=== PATIENT | male | born 1980 | race African-American/Black ===

== ENCOUNTER 2020-01-01 14:10 | Emergency (ER) | payer OTHER, SELFPAY ==
[2020-01-01 14:12] VITALS: BP 142/73; PULSE 70; RESP 20; TEMP 37.3; O2SAT 100; BMI 30.8
--- NOTE | 2020-01-01 14:20 | PC.NURSE ---
Pt self positioning in bed for increased comfort. c/o low back pain w/ intermittent pain down left leg and intermittent numbness in left toes. Moving all extremities equally well. Denies bowel / bladder issues. Has not had back injury in the past.
--- NOTE | 2020-01-01 15:01 | ED_ITS ---
HPI - Back Pain/Injury <Ella Lacy PA-C - Last Filed: 01/01/20 23:47> General Chief Complaint: Back Pain/Injury Stated Complaint: Left Leg Pain Time Seen by Provider: 01/01/20 14:32 Source: patient and EMS Limitations: no limitations History of Present Illness HPI Narrative: This is a previously healthy 39-year-old gentleman who is in the [place] [facility] who reports to the ED with complaints of back pain that is radiating down his left thigh that began approximately week and half ago. He says that about a week and half ago he was working to get his puppy in to a crate and he was pushing while he was crouching down in kneeling and he felt something ?go out in his back and was unable to stand up after this happened for a period of time, he says that he had to lay down on his back it gradually was able to ?stand up like an old man does for the next few days he was limping because of his back pain on the left side and radiation down the back of his leg. He describes the pain as intermittent, he says he really only notices it when he walks around for a while and then it becomes pretty severe although at times after walking it is so bad that it is like a 10/10 and he thinks he may be having spasms. When he is lying down or at rest in general and has not been moving recently he does not have any active pain. 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 and as is possible for him to have MRI imaging. He also notes that he has some chronic numbness in his feet on the outside of his feet and has been told previously that this may be due to his shoes being too tight. This is an isolated complaint he has no other concerns today and has been in his normal state of health otherwise, he denies fever, chills, N/V/D,saddle paresthesia, loss of bowel or bladder function, dysuria, abdominal pain, flank pain, testicular pain, numbness or tingling of his lower extremities except as above, or any other symptoms. Complaint: back pain and back injury Onset (ago): day(s) (11) Duration: intermittent Similar Symptoms Previously: No Location: lumbar spine and left lower back Severity: mild (Currently only a 1 was a 10 when he came in after he had been walking for a while) Quality: aching Radiation: buttocks and left leg (Back of left thigh into back in the calf) Severity scale (1-10): 1 Relieving factors: other (Rest) Exacerbating factors: walking Context: while lifting and bending (Pushing) Associated symptoms: denies other symptoms Treatments prior to arrival: NSAIDS and acetaminophen Related Data Previous Rx's Medication Instructions Recorded tizanidine 6 mg PO Q8H PRN #14 cap MDD 18mg 01/01/20 Allergies Allergy/AdvReac Type Severity Reaction Status Date / Time No Known Drug Allergies Allergy Verified 01/01/20 14:16 Review of Systems <Ella Lacy PA-C - Last Filed: 01/01/20 23:47> Review of Systems Narrative: GENERAL: Denies chills, fatigue, malaise, fever, sweats. HEENT: Denies sinus pain, ear pain, sore throat, difficulty swallowing, dizziness. RESPIRATORY: Denies dyspnea, cough, wheezing, hemoptysis, sputum. CARDIOVASCULAR: Denies chest pain, palpitations, orthopnea, edema, GASTROINTESTINAL: Denies nausea, vomiting, abdominal pain, diarrhea, constipation, melena. : Denies dysuria, frequency, incontinence, hematuria, urinary retention. MUSCULOSKELETAL: Positive for low back pain that is left-sided and radiating down the back of his left thigh to his knee and calf, denies weakness, joint pain, or bony pain SKIN: Denies rash, skin lesions, or other NEUROLOGIC: Denies weakness, headache, numbness, change in speech, confusion, seizures, incoordination, does endorse chronic numb/tingly sensation on his feet mostly on the outside of his feet and more on the left that has been present for over a year. PSYCHIATRIC: No concerning psychosocial issues. 12 point review of systems is negative except for those stated above Patient History <Ella Lacy PA-C - Last Filed: 01/01/20 23:47> Social History Smoking Status: Former smoker Smoking Status: Former smoker alcohol intake frequency: 0-2 drinks per day Substance Use Type: does not use Exam <Ella Lacy PA-C - Last Filed: 01/01/20 23:47> Narrative Exam Narrative: GENERAL: 39 year old patient appears stated age. Well-nourished, well-developed patient, in mild distress. HEAD: Atraumatic. Normocephalic. EYES: Pupils equal round and reactive. Extraocular motions intact. No scleral icterus. No injection or drainage. ENT: Nose without bleeding, purulent drainage. Throat without erythema, tonsillar hypertrophy or exudate. Airway patent. NECK: Trachea midline. Non tender CARDIOVASCULAR: Regular rate and rhythm without murmurs, gallops, or rubs. RESPIRATORY: Clear to auscultation. Breath sounds equal bilaterally. No wheezes, rales, or rhonchi. GASTROINTESTINAL: Abdomen soft, non-tender, nondistended. EXTREMITIES: Negative straight leg raise. He has normal active Flexion extens ion abduction adduction at the hip with mild pain produced with flexion of the left hip. Strength is intact and equal bilaterally lower extremities. Distal pulses are intact. Sensation is intact, slight reduced sensation on the lateral left foot. No edema or joint tenderness. BACK: Nontender without deformity or crepitance. No flank tenderness. NEURO: AOx3. SKIN: No rash or erythema of visible areas Initial Vital Signs Initial Vital Signs: Vital Signs Temperature 99.1 F 01/01/20 14:12 Pulse Rate 70 01/01/20 14:12 Respiratory Rate 01/01/20 14:12 Blood Pressure 142/73 H 01/01/20 14:12 Pulse Oximetry 100 01/01/20 14:12 <Addis Corrigan DO - Last Filed: 01/06/20 07:32> Initial Vital Signs Initial Vital Signs: Vital Signs Temperature 99.1 F 01/01/20 14:12 Pulse Rate 70 01/01/20 14:12 Respiratory Rate 01/01/20 14:12 Blood Pressure 142/73 H 01/01/20 14:12 Pulse Oximetry 100 01/01/20 14:12 Scores <HANS Lainez Last Filed: 01/01/20 23:47> GCS [place] coma scale eye opening: Spontaneous [place] coma scale verbal response: Orientated [place] coma scale motor response: Obey commands [place] coma scale total score: 15 Course <Ella Lacy PA-C - Last Filed: 01/01/20 23:47> Orders Ordered: ED Orders 01/01/20 15:40 XR lumbar spine 2-3V Stat Vital Signs Vital signs: Vital Signs - 8 hr 01/01/20 17:08 Pulse Rate 70 Respiratory Rate 15 Blood Pressure 142/86 H Pulse Oximetry 100 <Addis Corrigan DO - Last Filed: 01/06/20 07:32> Orders Ordered: ED Orders 01/01/20 15:40 XR lumbar spine 2-3V Stat Vital Signs Vital signs: Vital Signs - 8 hr 01/01/20 17:08 Pulse Rate 70 Respiratory Rate 15 Blood Pressure 142/86 H Pulse Oximetry 100 MDM - Back Pain/Injury <Ella Lacy PA-C - Last Filed: 01/01/20 23:47> Differential Diagnosis Differential diagnosis: Likely lumbar radiculopathy, sciatica, strain of lumbar region, pyelonephritis, discitis and other (Nerve compression) Medical Records Attestation: I reviewed the patient's medical records. Imaging Data XR lumbar: Attestation: I personally reviewed and interpreted this imaging study as follows: Radiologist's Impression: [place] [address] XRay Report Signed Patient: Leni Cruz#: [id number] : 1980Acct:[id number] Age/Sex: 39 / MDate of Service: 01/01/20 Loc: ED Accession Number: [id number] Procedure: XR lumbar spine 2-3V Ordering Provider: Ella Lacy P.A-C PROCEDURE: XR LUMBAR SPINE 2-3V INDICATIONS: acute low back pain TECHNIQUE: 3 views of the lumbar spine were acquired. COMPARISON: None. FINDINGS: Bones: 5 [id number] vertebrae are present. There is normal bony alignment. No vertebral body compression fractures. No suspicious bony lesions. Soft tissues: Overlying bowel gas pattern is normal. No suspicious soft tissue calcifications. IMPRESSION: Normal for age, source of current acute low back pain symptoms is not seen. Dictated by: Quan Wong M.D. on 01/01/2020 at 16:03 Approved by: Quan Wong M.D. on 01/01/2020 at 16:04 MDM Narrative Medical decision making narrative: This is a healthy 39-year-old in the who presents with complaints of lumbar and left-sided low back pain radiating down the back of his thigh for the past approximately week and a half since he sustained an injury while squatting and pushing forward. Differential diagnoses considered include muscle strain, sprain, sciatica radiculopathy, nerve compression, bulging disc, herniated disc, pyelonephritis I have low suspicion that this is related to urinary or abdominal process, his history and symptoms are consistent with a muscle strain, sprain, possible nerve compression as he has pain radiating down the back of his leg consistent with sciatic nerve compression. X-ray did not show any evidence of an acute abnormality. He has no red flag symptoms. He is encouraged to follow-up with his PCP, do light stretching, consider physical therapy, ice and heat, talk to his PCP about possible more advanced imaging or referral to specialist care if his symptoms are not improving in the next few weeks. He is provided with a work note and muscle relaxant as I believe he has been experiencing some muscle spasms with this. He is advised to alternate Tylenol and ibuprofen for pain as needed. Emergency return precautions are provided, all questions are answered. Discharge Plan Departure Patient Disposition: Home Clinical Impression: Low back pain Qualifiers: Chronicity: acute Back pain laterality: left Sciatica presence: with sciatica Sciatica laterality: sciatica of left side Qualified Code(s): M54.42 - Lumbago with sciatica, left side Discharge Date/Time: 01/01/20 17:42 Instructions: DI for Back Pain With Sciatica, DI for Back Spasm Activity Restrictions/Additional Instructions: Thank you for allowing us to be part of her care in the emergency department today. There is no evidence of an emergent or life threatening illness at this time, but follow up with your doctor in 1-2 days is recommended nonetheless to continue to rule out serious underlying causes of your symptoms. Please call the office for an appointment. Please return to the Emergency Department for any worsening or persistent symptoms. Please take medications as directed. I stro ngly recommend that you follow-up with your PCP and talk to them about pursuing additional imaging if your symptoms do not resolve, if you are suffering from muscle sprain or strain this can take 3-6 weeks to resolve however given the symptoms you have in your thigh it is likely that you may have some nerve compression, which can take more time or may require other interventions or possibly other imaging in order to diagnose. Given the length of time he have had the symptoms in your foot it is very unlikely that this is related to the acute back injury that he suffered, I do recommend you talk to your primary care about this again, you may have some mild neuropathy and you may need to consider some orthopedic shoe inserts and or different shoes. I am prescribing a muscle relaxer which she can use if you are having muscle spasms, however it is important not to drive or operate heavy equipment. You can also alternate Tylenol and ibuprofen for pain. Prescriptions: New tizanidine 6 mg capsule 6 mg PO Q8H MDD 18mg PRN (Reason: muscle spasticity) Qty: 14 RF: 0 Stand Alone Forms: Work Release Note <Addis Corrigan, - Last Filed: 01/06/20 07:32> Cosign ED Attending Madysonature Attestation: I was immediately available in the department for consultation. Documentation has been reviewed. I agree with assessment and plan.
--- NOTE | 2020-01-01 15:40 | DI.RAD.S_ITS ---
PROCEDURE: XR LUMBAR SPINE 2-3V INDICATIONS: acute low back pain TECHNIQUE: 3 views of the lumbar spine were acquired. COMPARISON: None. FINDINGS: Bones: 5 [id number] vertebrae are present. There is normal bony alignment. No vertebral body compression fractures. No suspicious bony lesions. Soft tissues: Overlying bowel gas pattern is normal. No suspicious soft tissue calcifications. IMPRESSION: Normal for age, source of current acute low back pain symptoms is not seen. Dictated by: Quan Wong M.D. on 01/01/2020 at 16:03 Approved by: Quan Wong M.D. on 01/01/2020 at 16:04
[2020-01-01 17:08] VITALS: BP 142/86; PULSE 70; RESP 15; O2SAT 100
== END 2020-01-01 17:42 | disposition home or self-care (01) ==
PROVIDERS: Emergency Provider Student in an Organized Health Care Education/Training Program
DX: M54.42 Lumbago with sciatica, left side (principal)
CPT/HCPCS: 72100; 99281; 99283

== ENCOUNTER → 2020-01-16 06:51 | Outpatient (CLI) | payer OTHER, SELFPAY ==
--- NOTE | 2020-01-16 | DI.MRI.S_ITS ---
PROCEDURE: MR LUMBAR SPINE WO CON INDICATIONS: Dorsalgia, unspecified TECHNIQUE: Noncontrast sagittal T1 spin echo and T2 fast echo, sagittal STIR, axial T1 and T2 fast spin echo through the lumbar spine. In cases with scoliosis, additional coronal T2 fast spin echo may be performed. COMPARISON: [facility], CR, XR LUMBAR SPINE 2-3V, 01/01/2020, 15:38. FINDINGS: Image quality: Degraded by motion artifact. Alignment and Curvature: There is normal bony alignment. Bone Marrow: Marrow is of normal overall signal. No acute vertebral body compression fractures. Spinal Cord: Conus medullaris terminates at the L1 level. Visualized cord demonstrates normal signal and size. Paraspinous Soft Tissues: No paravertebral masses. L1-L2: Normal appearance. L2-L3: Normal appearance. L3-L4: Normal appearance. L4-L5: Normal appearance. L5-S1: Loss of disc signal. Mild, diffuse disc bulge. Small left central disc protrusion. Disc protrusion abuts and slightly compresses the traversing left S1 nerve root. Mild narrowing of the central canal. Mild bilateral neural foraminal narrowing. IMPRESSION: 1. Mild L5-S1 degenerative disc disease. 2. Small left central L5-S1 disc protrusion which abuts and compresses the traversing left S1 nerve root. Please correlate with clinical data. 3. Mild L5-S1 central canal narrowing. 4. Mild bilateral L5-S1 neural foraminal narrowing. Dictated by: Aliya Barrera MD, PhD on 01/16/2020 at 10:18 Approved by: Aliya Barrera MD, PhD on 01/16/2020 at 10:39
== END ==
PROVIDERS: PCP Family Medicine; Referring Provider Family Medicine; Visit Provider Family Medicine
DX: M54.9 Dorsalgia, unspecified (principal); M51.27 Other intervertebral disc displacement, lumbosacral region; M51.37 Other intervertebral disc degeneration, lumbosacral region; M48.07 Spinal stenosis, lumbosacral region
CPT/HCPCS: 72148